=== PATIENT | female | born 1965 | race Caucasian/White ===

== ENCOUNTER → 2017-09-06 12:45 | Outpatient (CLI) | payer OTHER, SELFPAY ==
--- NOTE | 2017-09-06 12:50 | DI.US.S_ITS ---
ULTRASOUND OF RIGHT BREAST: 09/06/2017 CLINICAL: Patient returns for additional imaging over a suspected mass in the right breast. Comparison is made to exams dated: 09/06/2017 mammogram, 08/23/2017 mammogram - [facility], and 02/04/2014 mammogram - [facility]. Color flow and real-time ultrasound of the right breast were performed on the areas of interest. There is a 0.9 cm x 0.5 cm x 0.9 cm oval cyst in the right breast at 6 o'clock posterior depth. This oval cyst is hypoechoic with internal echoes and posterior acoustic enhancement. This correlates with mammography findings. Color flow imaging demonstrates that there is no vascularity present. IMPRESSION: PROBABLY BENIGN - FOLLOW-UP RECOMMENDED The 0.9 cm x 0.5 cm x 0.9 cm oval cyst in the right breast is consistent with a complex cyst and is probably benign. A follow-up ultrasound in 6 months is recommended. A follow-up ultrasound in 6 months is recommended to demonstrate stability. This exam was interpreted at Station ID: [id number]. Electronically Signed By: Ben colbert/gerson:09/06/2017 15:38:05 letter sent: Followup Recommended Ultrasound BI-RADS: 3 Probably benign
--- NOTE | 2017-09-06 12:50 | DI.MG.S_ITS ---
UNILATERAL RIGHT DIGITAL DIAGNOSTIC MAMMOGRAM 3D/2D WITH ADDITIONAL VIEWS: 09/06/2017 CLINICAL: Additional evaluation requested from prior study. Comparison is made to exams dated: 08/23/2017 mammogram - [facility], 02/04/2014 mammogram, and 08/29/2012 mammogram - [facility]. The tissue of the right breast is heterogeneously dense. This may lower the sensitivity of mammography. There is a 0.9 cm oval equal density mass with a circumscribed margin in the right breast at 6 o'clock middle depth. No other significant masses or calcifications are seen in the breast. IMPRESSION: INCOMPLETE: NEEDS ADDITIONAL IMAGING EVALUATION The 0.9 cm oval equal density mass in the right breast is indeterminate. An ultrasound is recommended. This exam was interpreted at Station ID: [id number]. NOTE: For mammograms, a report in lay terms will be sent to the patient. Approximately 15% of breast malignancies will not be visualized mammographically. In the management of a palpable breast mass, a negative mammogram must not discourage biopsy of a clinically suspicious lesion. Electronically Signed By: Ben colbert/gerson:09/06/2017 13:25:44 letter sent: Need Ultrasound ACR BI-RADS Category 0: Incomplete 3340F
== END ==
PROVIDERS: Visit Provider Specialist
DX: N60.01 Solitary cyst of right breast (principal)
CPT/HCPCS: 76642; 77065; G0279

== ENCOUNTER → 2018-03-20 12:12 | Outpatient (CLI) | payer OTHER, SELFPAY ==
--- NOTE | 2018-03-20 | DI.RAD.S_ITS ---
This blank DEXA report has been sent in error by the PACS system. The correct and complete report will be forthcoming in 1-2 days. Thank you for your patience and understanding. Dictated by: Ramon Varghese M.D. on 03/20/2018 at 14:47 Approved by: Ramon Varghese M.D. on 03/20/2018 at 14:48
--- NOTE | 2018-03-20 12:14 | DI.US.S_ITS ---
LIMITED ULTRASOUND OF RIGHT BREAST: 03/20/2018 CLINICAL: 6 month follow-up of complicated cyst. Comparison is made to exams dated: 09/06/2017 mammogram, 09/06/2017 mammogram, 08/23/2017 mammogram - [facility], 02/04/2014 mammogram, and 08/29/2012 mammogram - [facility]. Real-time and Doppler ultrasound of the right breast 6 o'clock region were performed. Mendiola scale images of the real-time examination were reviewed. There is a 0.5 x 0.5 x 0.4 cm (previously 0.9 x 0.5 x 0.9 cm on 09/06/2017) oval circumscribed cyst in the right breast at 6 o'clock 9 cm from the nipple. This oval cyst is hypoechoic with internal echoes and posterior acoustic enhancement. This correlates with prior exams. Color flow imaging demonstrates that there is mild peripheral vascularity present, but no internal vascularity. IMPRESSION: PROBABLY BENIGN 0.5 cm probable complicated cyst in the right breast at 6 o'clock position 9 cm from the nipple is stable to slightly decreased in size from prior exam of 09/06/2017, and is probably benign. A follow-up diagnostic mammogram and an ultrasound in 6 months is recommended to demonstrate stability. The patient is advised to monitor her breasts and to return sooner for re-evaluation should she feel anything grow or change. This exam was interpreted at Station ID: [id number]. Electronically Signed By: Dwayne Hill M.D. ecl/:03/20/2018 13:01:06 letter sent: Followup Recommended Ultrasound BI-RADS: 3 Probably benign
== END ==
PROVIDERS: Visit Provider Family Medicine
DX: R92.8 Other abnormal and inconclusive findings on diagnostic imaging of breast (principal); N60.01 Solitary cyst of right breast; M85.851 Other specified disorders of bone density and structure, right thigh; Z78.0 Asymptomatic menopausal state; Z82.62 Family history of osteoporosis
CPT/HCPCS: 76642; 77080

== ENCOUNTER → 2018-11-07 14:12 | Outpatient (CLI) | payer OTHER, SELFPAY ==
--- NOTE | 2018-11-07 14:15 | DI.US.S_ITS ---
LIMITED ULTRASOUND OF RIGHT BREAST: 11/07/2018 CLINICAL: Patient returns today for a follow up to evaluate a focal asymmetry in the right breast. Comparison is made to exams dated: 11/07/2018 mammogram, 03/20/2018 ultrasound, 09/06/2017 mammogram, 09/06/2017 mammogram, 08/23/2017 mammogram - [facility], and 02/04/2014 mammogram - [facility]. Color flow and real-time ultrasound of the right breast 5-7 o'clock region were performed. Mendiola scale images of the real-time examination were reviewed. There is 0.7 cm x 0.5 cm x 0.3 cm oval mass, horizontal within the tissues with a microlobulated margin in the right breast at 6 o'clock middle depth 9 cm from the nipple. This oval mass displays posterior acoustic enhancement. This abnormality is decreased in size from the exam dated 09/06/17 where is measured 0.9 x 0.9 x 0.5 cm, but was likely not imaged on the 03/20/18 exam. Color flow imaging demonstrates that vascularity is now present. There also is a stable 0.4 cm x 0.4 cm x 0.4 cm round complicated cyst in the right breast at 6 o'clock middle depth 9 cm from the nipple. Color flow imaging demonstrates that there is no vascularity present. This is stable compared to the more recent prior exam. IMPRESSION: PROBABLY BENIGN The 0.7 cm oval mass in the right breast at 6 o'clock middle depth has decreased in size, has a differential diagnosis of a lymph node or a fibroadenoma and is probably benign. A follow-up ultrasound in 6 months is recommended to ensure stability. The 0.4 cm round complicated cyst in the right breast at 6 o'clock middle depth is stable and is probably benign. Reevaluation with ultrasound in 6 months is recommended. Resolution of prior right breast mammography abnormality on the current study. No need for follow up mammogram with the 6 month ultrasound. Findings and recommendations were conveyed to the patient at time of exam. This exam was interpreted at Station ID: [id number]. Electronically Signed By: Heather chiu/:11/07/2018 19:39:46 letter sent: Followup Recommended Ultrasound BI-RADS: 3 Probably benign
--- NOTE | 2018-11-07 14:15 | DI.MG.S_ITS ---
BILATERAL DIGITAL DIAGNOSTIC MAMMOGRAM 3D/2D SHORT-TERM FOLLOW-UP: 11/07/2018 CLINICAL: Patient returns for 6 month follow up of right breast, due for bilateral exam. Comparison is made to exams dated: 09/06/2017 mammogram, 08/23/2017 mammogram - [facility], and 02/04/2014 mammogram - [facility]. The tissue of both breasts is heterogeneously dense. This may lower the sensitivity of mammography. The 0.9 cm oval equal density mass with a circumscribed margin in the right breast at 6 o'clock middle depth is no longer seen. No other significant masses, calcifications, or other findings are seen in either breast. IMPRESSION: INCOMPLETE: NEEDS ADDITIONAL IMAGING EVALUATION An ultrasound is recommended to confirm the oval equal density mass in the right breast has resolved. This was performed immediately following this exam. This exam was interpreted at Station ID: [id number]. NOTE: For mammograms, a report in lay terms will be sent to the patient. Approximately 15% of breast malignancies will not be visualized mammographically. In the management of a palpable breast mass, a negative mammogram must not discourage biopsy of a clinically suspicious lesion. Electronically Signed By: Heather chiu/:11/07/2018 19:30:02 ACR BI-RADS Category 0: Incomplete 3340F
== END ==
PROVIDERS: PCP Family Medicine; Visit Provider Specialist
DX: Z12.31 Encounter for screening mammogram for malignant neoplasm of breast (principal); R92.8 Other abnormal and inconclusive findings on diagnostic imaging of breast; N64.89 Other specified disorders of breast; N60.01 Solitary cyst of right breast
CPT/HCPCS: 76642; 77066; G0279

== ENCOUNTER → 2019-02-14 07:43 | Outpatient (CLI) | payer OTHER, SELFPAY ==
--- NOTE | 2019-02-14 07:44 | DI.MRI.S_ITS ---
BREAST MRI OF BOTH BREASTS: 02/14/2019 CLINICAL: History of significant radiation exposure. History of an asymmetry initially seen on comparison screening mammogram of 08/23/17, with probable complicated cysts/masses subsequent ultrasounds (most recently from 11/07/18), which are being followed with diagnostic mammograms and ultrasounds. PROCEDURE: MR BREAST BI WO/W CON INDICATIONS: History of significant radiation exposure. History of an asymmetry initially seen on comparison screening mammogram of 08/23/17, with probable complicated cysts/masses subsequent ultrasounds (most recently from 11/07/18), which are being followed with diagnostic mammograms and ultrasounds. TECHNIQUE: The patient was placed prone in a dedicated breast imaging coil. Precontrast axial STIR and 3D FLASH without fat saturation sequences were obtained. Both before and after bolus injection of contrast, sequential 1-minute axial 3D FLASH with fat saturation sequences for 3 time points, with subtraction images and maximum intensity projections (MIP's) generated. Please note that delayed sagittal FLASH images with fat saturation could not be obtained as the patient refused to continue partway through the exam due to reported patient discomfort. 20 cc of ProHance IV contrast was utilized for this exam. Computer-aided detection, including computer algorithm analysis of MRI image data for lesion detection and characterization, pharmacokinetic analysis, with further physician review for interpretation, was performed. COMPARISON: [facility], BREAST RT LIMITED, 11/07/2018, 14:50. Located within [facility], MM DIAGNOSTIC MAMMO BI, 11/07/2018, 14:25. [facility], BREAST RT LIMITED, 03/20/2018, 12:25. [facility], BREAST RT LIMITED, 09/06/2017, 13:34. Located within [facility], MM SPECIAL VIEW RT, 09/06/2017, 13:01. Located within [facility], MM SCREENING MAMMO BI, 08/23/2017, 11:25. , SCREENING BILAT MAMMO, 02/04/2014, 11:14. , BILATERAL SCREENING, 08/29/2012, 12:49. MR, BREAST BILATERAL W FINDINGS: Image quality: Please note that delayed sagittal FLASH images with fat saturation could not be obtained as the patient refused to continue partway through the exam due to reported patient discomfort. Otherwise adequate. There is mild background parenchymal enhancement. Right breast: There is an approximately 0.6 cm STIR-hyperintense oval circumscribed focus located in the inferior right breast near 6:00 position anterior depth, which demonstrates no suspicious contrast enhancement. There is also an approximately 0.6 cm STIR-hyperintense oval circumscribed focus located in the inferior lateral right breast near 7:00 position anterior depth, which demonstrates no suspicious contrast enhancement. No suspicious non-mass enhancement identified within the right breast. Left breast: There is a 0.8 cm oval enhancing mass in the superior left breast near 12:00 position anterior depth (axial image 84 of series 6) and a 0.4 cm oval enhancing focus in the superior left breast near 12:00 position middle depth (axial image 92 of series 6), which demonstrate associated signal hyperintensity on STIR imaging. There are additionally several small foci of enhancement (measuring 5 mm or less in greatest diameter) within the inferior medial left breast posterior depth (axial images 56-62 of series 6), without associated signal hyperintensity on STIR imaging. Miscellaneous: No axillary or internal mammary lymphadenopathy bilaterally. IMPRESSION: INCOMPLETE: NEEDS ADDITIONAL IMAGING EVALUATION Please note that the exam was terminated prematurely as the patient refused to continue partway through the exam due to reported patient discomfort. Within this context: 1. Right breast: 2 approximately 0.6 cm STIR-hyperintense oval circumscribed foci in the inferior and inferior lateral right breast near 6:00-7:00 positions demonstrate no suspicious contrast enhancement. These likely represent cysts or small fibroadenomas/lymph nodes and are probably benign. These appear to correlate with the findings seen on comparison right breast ultrasound of 11/07/18. Continued ultrasound and mammographic followup of these findings is recommended. 2. Left breast: 0.8 cm oval enhancing mass in the superior left breast near 12:00 position anterior depth and 0.4 cm oval enhancing focus in the superior left breast near 12:00 position middle depth. Differential considerations include fibroadenomas, lymph nodes, or inflammatory cysts, but malignancy cannot be excluded. A targeted left breast ultrasound is recommended for further evaluation. Furthermore, there are several small foci of enhancement within the inferior medial left breast posterior depth; while this may represent prominent background parenchymal enhancement, evaluation of this region by targeted left breast ultrasound is also recommended to exclude underlying malignancy. BIRADS: Left breast: BI-RADS 0. Incomplete. A targeted left breast ultrasound is recommended for further evaluation. Right breast: BI-RADS 3. Probably benign. Continued followup with right breast diagnostic mammography and targeted right breast ultrasound recommended, with next right breast ultrasound due in April 2019 (6 months after the most recent comparison right breast ultrasound of 11/07/18). COMMENT: The imaging literature indicates that a negative contrast breast MRI examination has a high sensitivity and a moderate specificity for detecting and excluding invasive carcinomas to a detection threshold of 3-5 mm; nonetheless, appropriate clinical and mammographic follow-up are recommended. MRI is not sensitive for detecting DCIS (ductal carcinoma in situ) and may not detect large invasive neoplasms that show only minimal enhancement such as mucinous carcinoma. If there are suspicious calcifications or clinically worrisome palpable masses, then biopsy should still be considered. Invasive neoplasms can be hidden by co-existent and benign enhancement caused by mastitis, hormone therapy effects, radiation therapy, , and recent biopsy or surgery. False positive examinations can occur in a number of circumstances, including breasts that have recently been subject to invasive procedures and those that contain atypical ductal hyperplasia, hormonally stimulated glandular tissue, fat necrosis, or radial scars. This exam was interpreted at Station ID: [id number]. Electronically Signed By: Dwayne Hill M.D. ecl/:02/15/2019 10:23:31 letter sent: Additional Imaging Needed ACR BI-RADS Category 0: Incomplete 3340F
== END ==
PROVIDERS: Family Provider Family Medicine; PCP Family Medicine; Visit Provider Specialist
DX: R92.8 Other abnormal and inconclusive findings on diagnostic imaging of breast (principal); N63.25 Unspecified lump in the left breast, overlapping quadrants; N64.89 Other specified disorders of breast; Z92.3 Personal history of irradiation
CPT/HCPCS: 77049; A9579

== ENCOUNTER → 2019-02-27 13:14 | Outpatient (CLI) | payer OTHER, SELFPAY ==
--- NOTE | 2019-02-27 13:15 | DI.US.S_ITS ---
ULTRASOUND OF LEFT BREAST: 02/27/2019 CLINICAL: Abnormal MRI. Comparison is made to exams dated: 02/14/2019 breast MRI, 11/07/2018 mammogram, 08/23/2017 mammogram - [facility], 02/04/2014 mammogram - [facility], and 11/07/2018 ultrasound - [facility]. Real-time ultrasound of the left breast was performed. Mendiola scale images of the real-time examination were reviewed. No significant abnormalities were seen sonographically in the left breast. Specifically, no sonographic abnormalities noted in the areas described on recent breast MRI dated 02/14/2019. IMPRESSION: PROBABLY BENIGN There are no abnormalities seen in the left breast to correspond with the breast MRI findings at 6, 7, 8, 9, and 12 o'clock in the anterior, middle, and posterior depth. Findings on MRI are probably benign. A follow-up bilateral mammogram and a right breast ultrasound in 6 months is recommended to demonstrate continued stability of previously described probably benign masses in the right breast. Patient is due for her bilateral mammogram as well. Additionally, recommend 6 month follow up MRI to document stability of probably benign findings described in the bilateral breasts. This exam was interpreted at Station ID: [id number]. Electronically Signed By: Jaren Lal M.D. aty/:02/27/2019 14:43:24 letter sent: Followup Recommended Ultrasound BI-RADS: 3 Probably benign
== END ==
PROVIDERS: Family Provider Family Medicine; PCP Family Medicine; Referring Provider Specialist; Visit Provider Family Medicine
DX: R92.8 Other abnormal and inconclusive findings on diagnostic imaging of breast (principal); N63.10 Unspecified lump in the right breast, unspecified quadrant
CPT/HCPCS: 76642

== ENCOUNTER → 2019-09-23 14:54 | Outpatient (CLI) | payer OTHER, SELFPAY ==
--- NOTE | 2019-09-23 14:55 | DI.MRI.S_ITS ---
BREAST MRI OF BOTH BREASTS: 09/23/2019 CLINICAL: Abnormal MRI. TECHNIQUE: The patient was placed prone in a dedicated breast imaging coil. Precontrast axial STIR and 3D FLASH without fat saturation sequences were obtained. Both before and after bolus injection of contrast, sequential 1-minute axial 3D FLASH with fat saturation sequences for 3 time points, with subtraction images and maximum intensity projections (MIP's) generated. Delayed sagittal FLASH images with fat saturation were also obtained. Computer-aided detection, including computer algorithm analysis of MRI image data for lesion detection and characterization, pharmacokinetic analysis, with further physician review for interpretation, was performed. COMPARISON: [facility], , MM DIAGNOSTIC MAMMO BI, 11/07/2018, 14:25. [facility], US, US BREAST RT LIMITED, 11/07/2018, 14:50. [facility], , US BREAST LT LIMITED, 02/27/2019, 13:43. [facility], , MR BREAST BI WO/W CON, 02/14/2019, 8:11. FINDINGS: Image quality: Excellent. Of note, the patient was unable to finish the examination. Bilateral sagittal imaging was not performed. There is minimal background parenchymal enhancement. There is heterogeneously dense fibroglandular tissue in the bilateral breasts. Right breast: No suspicious mass, non-mass enhancement, or architectural distortion. No skin or nipple abnormalities. A few sub-5 mm foci of enhancement compatible with background parenchymal enhancement are again noted and not significantly changed. No axillary or internal mammary chain adenopathy. Previously described 6 mm T2 hyperintense, enhancing oval mass in the inferolateral, posterior right breast has decreased in size and likely represents a lymph node. Left breast: No suspicious mass, non-mass enhancement, architectural distortion. No skin or nipple abnormalities. A few sub-5 mm foci of background parenchymal enhancement are again noted. Persistent 6 mm oval T2 hyperintense, enhancing mass in the anterior depth of the left breast at approximately the 12:00 position demonstrates persistent delayed phase enhancement kinetics. Findings are likely related to a fibroadenoma versus lymph node. No axillary or internal mammary chain adenopathy. IMPRESSION: PROBABLY BENIGN Miscellaneous: Visualized portions of the chest and upper abdomen appear unremarkable. Normal bone marrow signal intensity. 1. No MRI evidence for malignancy in the right breast. Previously described posterior depth inferolateral right breast mass has decreased in size and likely represents a fibroadenoma versus lymph node with a lymph node been favored. 2. Persistent 6 mm enhancing mass in the anterior left breast 12:00 axis with imaging features most consistent with a fibroadenoma versus lymph node. There was no sonographic correlate or definite mammographic correlate seen on second look ultrasound This is probably benign. A followup MRI in one year is recommended to document stability. Patient is due for bilateral screening mammogram and right breast ultrasound for probably benign complicated cysts at the 6 o'clock position. COMMENT: The imaging literature indicates that a negative contrast breast MRI examination has a high sensitivity and a moderate specificity for detecting and excluding invasive carcinomas to a detection threshold of 3-5 mm; nonetheless, appropriate clinical and mammographic follow-up are recommended. MRI is not sensitive for detecting DCIS (ductal carcinoma in situ) and may not detect large invasive neoplasms that show only minimal enhancement such as mucinous carcinoma. If there are suspicious calcifications or clinically worrisome palpable masses, then biopsy should still be considered. Invasive neoplasms can be hidden by co-existent and benign enhancement caused by mastitis, hormone therapy effects, radiation therapy, , and recent biopsy or surgery. False positive examinations can occur in a number of circumstances, including breasts that have recently been subject to invasive procedures and those that contain atypical ductal hyperplasia, hormonally stimulated glandular tissue, fat necrosis, or radial scars. This exam was interpreted at Station ID: [id number]. Electronically Signed By: Jaren Lal M.D. aty/:09/23/2019 17:30:08 letter sent: Followup Recommended ACR BI-RADS Category 3: Probably benign [id number]
== END ==
PROVIDERS: Family Provider Family Medicine; PCP Family Medicine; Referring Provider Specialist; Visit Provider Specialist
DX: R93.89 Abnormal findings on diagnostic imaging of other specified body structures (principal); N63.13 Unspecified lump in the right breast, lower outer quadrant; N63.25 Unspecified lump in the left breast, overlapping quadrants
CPT/HCPCS: 77049

== ENCOUNTER → 2019-10-31 12:41 | Outpatient (CLI) | payer OTHER, SELFPAY ==
--- NOTE | 2019-10-31 12:43 | DI.MG.S_ITS ---
BILATERAL DIGITAL DIAGNOSTIC MAMMOGRAM 3D/2D SHORT-TERM FOLLOW-UP: 10/31/2019 CLINICAL: Patient returns for 6 month follow up of right breast, due for bilateral exam. Comparison is made to exams dated: 11/07/2018 mammogram, 09/06/2017 mammogram, 08/23/2017 mammogram - [facility], 02/04/2014 mammogram, and 08/29/2012 mammogram - [facility]. The tissue of both breasts is heterogeneously dense. This may lower the sensitivity of mammography. No significant masses, calcifications, or other findings are seen in either breast. IMPRESSION: There is no mammographic evidence of malignancy. A targeted ultrasound of the right breast is recommended to evaluate the findings on the 11/07/18 right breast ultrasound and will be performed immediately following this exam. This exam was interpreted at Station ID: [id number]. NOTE: For mammograms, a report in lay terms will be sent to the patient. Approximately 15% of breast malignancies will not be visualized mammographically. In the management of a palpable breast mass, a negative mammogram must not discourage biopsy of a clinically suspicious lesion. Electronically Signed By: Gely Moore M.D. lk/:10/31/2019 13:28:49 copy to: VIRGINIE BUSTAMANTE BI-RADS Category 2: Benign Finding(s) 3342F
--- NOTE | 2019-10-31 12:43 | DI.US.S_ITS ---
PROCEDURE: US BREAST RT LIMITED COMPARISON: [facility], BREAST RT LIMITED, 09/06/2017, 13:34. [facility] BREAST RT LIMITED, 03/20/2018, 12:25. [facility], BREAST RT LIMITED, 11/07/2018, 14:50. INDICATIONS: ABN MRI FINDINGS: IMPRESSION: Dictated by: Gely Moore M.D. on 10/31/2019 at 15:06 Approved by: Gely Moore M.D. on 10/31/2019 at 15:37
--- NOTE | 2019-10-31 14:06 | DI.US.S_ITS ---
Patient Name: ESAU MORENO date: 1965 Sex: F Attending Physician: Deepaliist Indications: Date: 10/31/2019 14:54 At the request of: KATE MURILLO Procedure: US breast RT limited ULTRASOUND OF RIGHT BREAST: 10/31/2019 CLINICAL: 6 month follow-up of cysts. Comparison is made to exams dated: 10/31/2019 mammogram, 09/23/2019 breast MRI, 02/27/2019 ultrasound, 02/14/2019 breast MRI, 11/07/2018 ultrasound, and 11/07/2018 mammogram [facility]. Color flow ultrasound of the right breast was performed on the areas of interest. Mendiola scale images of the real-time examination were reviewed. There is a stable 0.7 cm x 0.5 cm x 0.3 cm oval mass with a microlobulated margin in the right breast at 6 o'clock middle depth 9 cm from the nipple. This is unchanged from the 09/06/17 ultrasound. There also is a stable 0.4 cm x 0.4 cm x 0.4 cm round cyst in the right breast at 6 o'clock middle depth 9 cm from the nipple. Color flow imaging demonstrates that there is no vascularity present. Of note, in retrospect this was incidentally present on the 09/06/17 ultrasound and is unchanged (although not originally documented on the report). IMPRESSION: BENIGN There is no sonographic evidence of malignancy. The 0.7 cm x 0.5 cm x 0.3 cm oval mass in the right breast at 6 o'clock middle depth has been stable for over 24 months, most likely is a fibroadenoma and is benign. The stable 0.4 cm x 0.4 cm x 0.4 cm round cyst in the right breast at 6 o'clock middle depth is consistent with a complicated cyst and is benign. A 1 year screening mammogram is recommended. Future imaging is recommended as follows: 09/22/2020 breast MRI. Continued Report - Page 2 of 2 Patient Name: ESAU MORENO date: 1965 Sex: F Attending Physician: Meera Indications: Date: 10/31/2019 14:54 At the request of: KATE MURILLO Procedure: US breast RT limited This exam was interpreted at Station ID: [id number]. Electronically Signed By: Gely Moore M.D. lk/:10/31/2019 15:30:12 copy to: VIRGINIE MORENO letter sent: Normal Exam Ultrasound BI-RADS: 2 Benign
== END ==
PROVIDERS: Family Provider Family Medicine; PCP Family Medicine; Referring Provider Specialist; Visit Provider Specialist
DX: R92.8 Other abnormal and inconclusive findings on diagnostic imaging of breast (principal); N63.15 Unspecified lump in the right breast, overlapping quadrants; N60.01 Solitary cyst of right breast
CPT/HCPCS: 76642; 77066; G0279

== ENCOUNTER → 2021-09-01 12:42 | Outpatient (CLI) | payer OTHER, SELFPAY ==
--- NOTE | 2021-09-01 12:47 | DI.MRI.S_ITS ---
BREAST MRI OF BOTH BREASTS: 09/01/2021 CLINICAL: MRI- high risk. PROCEDURE: MR BREAST BI WO/W CON INDICATIONS: PERSONAL HISTORY OF IRRADIATION TECHNIQUE: The patient was placed prone in a dedicated breast imaging coil. Precontrast axial STIR and 3D FLASH without fat saturation sequences were obtained. Both before and after bolus injection of contrast, sequential 1-minute axial 3D FLASH with fat saturation sequences for 3 time points, with subtraction images and maximum intensity projections (MIP's) generated. Delayed sagittal FLASH images with fat saturation were also obtained. (Right and left sagittal post-contrast images were not acquired). Computer-aided detection, including computer algorithm analysis of MRI image data for lesion detection and characterization, pharmacokinetic analysis, with further physician review for interpretation, was performed. CONTRAST: 20 cc ProHance IV contrast. COMPARISON: US, US BREAST RT LIMITED, 10/31/2019, 14:06. [facility], , MM DIAGNOSTIC MAMMO BI, 10/31/2019, 13:06. US, US BREAST LT LIMITED, 02/27/2019, 13:43. [facility], , MR BREAST BI WO/W CON, 02/14/2019, 8:11. US, US BREAST RT LIMITED, 11/07/2018, 14:50. [facility], , MM DIAGNOSTIC MAMMO BI, 11/07/2018, 14:25. [facility], , MR BREAST BI WO/W CON, 09/23/2019, 15:25. FINDINGS: Image quality: Good. The exam was terminated early due to the patient filling sick after IV contrast injection and close to passing out. There is mild background parenchymal enhancement. Right breast: No significant mass or suspicious enhancement. The previously seen subcentimeter fibroadenoma in the 6 o'clock region is stable. Small T2 hyperintense cyst and axillary tail lymph node. Left breast: No mass or suspicious enhancement. Miscellaneous: No enlarged lymph nodes. Thoracic spine fixation hardware susceptibility artifact. IMPRESSION: BENIGN Exam is mildly limited due to early termination. The right and left sagittal post-contrast images were not acquired. No suspicious mass or enhancement identified. No adenopathy. BIRADS 2. A 1 year screening mammogram is recommended. COMMENT: The imaging literature indicates that a negative contrast breast MRI examination has a high sensitivity and a moderate specificity for detecting and excluding invasive carcinomas to a detection threshold of 3-5 mm; nonetheless, appropriate clinical and mammographic follow-up are recommended. MRI is not sensitive for detecting DCIS (ductal carcinoma in situ) and may not detect large invasive neoplasms that show only minimal enhancement such as mucinous carcinoma. If there are suspicious calcifications or clinically worrisome palpable masses, then biopsy should still be considered. Invasive neoplasms can be hidden by co-existent and benign enhancement caused by mastitis, hormone therapy effects, radiation therapy, , and recent biopsy or surgery. False positive examinations can occur in a number of circumstances, including breasts that have recently been subject to invasive procedures and those that contain atypical ductal hyperplasia, hormonally stimulated glandular tissue, fat necrosis, or radial scars. Dictated by: Armaan Cline M.D. on 09/01/2021 at 13:50 This exam was interpreted at Station ID: [id number]. Electronically Signed By: Armaan Cline M.D. slc/:09/01/2021 14:24:48 Entry: - 09/02/2021 09:36:28 copy to: VIRGINIE BUSTAMANTE BI-RADS Category 2: Benign Finding(s) 3342F
--- NOTE | 2021-09-01 12:48 | DI.MG.S_ITS ---
BILATERAL DIGITAL SCREENING MAMMOGRAM 3D/2D WITH CAD: 09/01/2021 CLINICAL: Routine screening. Comparison is made to exams dated: 09/01/2021 breast MRI, 10/31/2019 ultrasound, 10/31/2019 mammogram, 09/23/2019 breast MRI, 02/27/2019 ultrasound - [facility], and 08/29/2012 mammogram - [facility]. The tissue of both breasts is heterogeneously dense. This may lower the sensitivity of mammography. Current study was also evaluated with a Computer Aided Detection (CAD) system. No significant masses, calcifications, or other findings are seen in either breast. There has been no significant interval change. IMPRESSION: NEGATIVE There is no mammographic evidence of malignancy. A 1 year screening mammogram is recommended. This exam was interpreted at Station ID: [id number]. NOTE: For mammograms, a report in lay terms will be sent to the patient. Approximately 15% of breast malignancies will not be visualized mammographically. In the management of a palpable breast mass, a negative mammogram must not discourage biopsy of a clinically suspicious lesion. Electronically Signed By: Armaan callejas/gerson:09/01/2021 14:44:03 copy to: VIRGINIE MORENO letter sent: Normal Exam ACR BI-RADS Category 1: Negative 3341F
== END ==
PROVIDERS: Family Provider Family Medicine; PCP Family Medicine; Referring Provider Family Medicine; Visit Provider Family Medicine
DX: Z12.39 Encounter for other screening for malignant neoplasm of breast (principal); D24.1 Benign neoplasm of right breast; N60.01 Solitary cyst of right breast; Z92.3 Personal history of irradiation
CPT/HCPCS: 77049; 77063; 77067; A9579

== ENCOUNTER → 2024-01-02 16:02 | Outpatient (CLI) | payer OTHER, SELFPAY ==
--- NOTE | 2024-01-02 16:04 | DI.MG.S_ITS ---
BILATERAL DIGITAL SCREENING MAMMOGRAM 3D/2D WITH CAD: 01/02/2024 CLINICAL: Routine screening. Comparison is made to exams dated: 09/01/2021 mammogram, 10/31/2019 mammogram, and 11/07/2018 mammogram - [facility]. The breasts are heterogeneously dense, which may obscure small masses (category c / 51-75% glandular tissue). Current study was also evaluated with a Computer Aided Detection (CAD) system. There is a biopsy clip in the left breast. No significant masses, calcifications, or other findings are seen in either breast. There has been no significant interval change. IMPRESSION: NEGATIVE There is no mammographic evidence of malignancy. A 1 year screening mammogram is recommended. Based on the Tyrer Cuzick model (a risk assessment model) the patient's lifetime risk is 13.1% and her 10 year risk is 4.9%. According to the ACR, ACS, and NCCN guidelines, an annual breast MRI exam along with mammogram is recommended if the patient's lifetime risk is 20% or greater. This exam was interpreted at Station ID: [id number]. NOTE: For mammograms, a report in lay terms will be sent to the patient. Approximately 15% of breast malignancies will not be visualized mammographically. In the management of a palpable breast mass, a negative mammogram must not discourage biopsy of a clinically suspicious lesion. Electronically Signed By: Heather chiu/gerson:01/04/2024 09:03:54 copy to: VIRGINIE MORENO letter sent: Normal Exam ACR BI-RADS Category 1: Negative [id number]
== END ==
LOC: MAMMO 16:03
PROVIDERS: Family Provider Family Medicine; PCP Family Medicine; Referring Provider Family Medicine; Visit Provider Family Medicine
DX: Z12.31 Encounter for screening mammogram for malignant neoplasm of breast (principal); R92.333 Mammographic heterogeneous density, bilateral breasts
CPT/HCPCS: 77063; 77067